=== PATIENT | female | born 1985 | race African-American/Black ===

== ENCOUNTER 2016-06-06 10:48 | Emergency (ER) | payer OTHER ==
[~2016-06-06] VITALS: Ht 160 cm; Wt 130.2 kg
[~2016-06-06 10:48] MED LIST: MEDR10TA PO; PHEN37.5 PO
[2016-06-06 11:48] LABS: BASO % 0 % (0-3); EOS % 1 % (0-3); HEMATOCRIT 36.3 % (36.0-47.0); HEMOGLOBIN 12.1 g/dL (12.0-15.5); LYMPH # 2.7 x10^3/uL (1.0-4.8); LYMPH % 35 % (24-48); MEAN CORPUSCULAR HEMOGLOBIN 29 pg (25-35); MEAN CORPUSCULAR HGB CONC 33 g/dL (31-37); MEAN CORPUSCULAR VOLUME 86 fL (79-100); MONO % 11 % (0-9); NEUT % 53 % (31-73); PLATELET COUNT 306 x10^3/uL (140-400); RED BLOOD COUNT 4.22 x10^6/uL (3.50-5.40); RED CELL DISTRIBUTION WIDTH 15.1 % (11.5-14.5); WHITE BLOOD COUNT 7.8 x10^3/uL (4.0-11.0)
[2016-06-06 11:49] LABS: BILIRUBIN,URINE NEGATIVE (NEG); GLUCOSE,URINE NEGATIVE (NEG); NITRITE,URINE NEGATIVE (NEG); PH,URINE 7.5; PROTEIN,URINE 30 mg/dL (NEG-TRACE); UROBILINOGEN,URINE 0.2 mg/dL (0.2 mg/dL)
[2016-06-06 12:21] LABS: RBC,URINE >40 /HPF (0-2)
[2016-06-06 12:22] LABS: BACTERIA,URINE 0 /HPF (0-FEW); SQUAMOUS EPITHELIAL CELL,UR MANY /LPF; WBC,URINE 0 /HPF (0-4)
--- NOTE | 2016-06-06 13:00 | RAD ---
Indication: Vaginal bleeding. Technique: First trimester OB ultrasound was performed. No comparison is available at this institution. Findings: There is a single live intrauterine with heart tones of 160 bpm. Estimated gestational age by ultrasound is 13 weeks 2 days for an MONET of December 10, 2016. Patient states clinically 9 weeks 3 days, there is a 27 day discrepancy. Biparietal diameter measures 1.99 cm, [address] conference measures 7.57 cm, 13 weeks 1 day. Abdominal circumference measures 6.37 cm, 13 weeks 1 day. Femur length measures 1.19 cm, 13 weeks 4 days. HC/AC ratio is 1.19. No implantation bleed is apparent. Full survey could not be performed in this first trimester . Cervix is long and closed. Maternal left ovary is within normal limits. Right maternal ovary is not visualized. Amniotic fluid is subjectively within normal limits. Impression: Single live intrauterine measures 13 weeks 2 days by ultrasound with heart tones of 160 bpm.
--- NOTE | 2016-06-06 13:12 | PHYS DOC ---
Past Medical History Past Medical History: Hypertension, Other Additional Past Medical Histor: HEART MURMUR Past Surgical History: No Surgical History Smoking: Quit Less Than 1 Year Alcohol Use: None Drug Use: None Adult General Chief Complaint Chief Complaint: VAGINAL BLEEDING HPI HPI Patient is a 31 year old female who presents with vaginal bleeding starting at 10:00 this morning. She is with LMP 04/01/16. She is . She denies any abdominal pain, nausea, vomiting, fever, dysuria, or vaginal discharge. Her PCP is Dr. Sanchez. Her OB is Dr. Goncalves. She is taking daily vitamins. Review of Systems Review of Systems Constitutional: Denies fever or chills. [] Eyes: Denies change in visual acuity, redness, or eye pain. [] HENT: Denies ear pain, nasal congestion or sore throat. [] Respiratory: Denies cough or shortness of breath. [] Cardiovascular: Denies chest pain, palpitations or edema. [] GI: Denies abdominal pain, nausea, vomiting, bloody stools or diarrhea. [] : Denies dysuria, hematuria or urinary frequency. Denies vaginal discharge. Reports vaginal bleeding. Musculoskeletal: Denies back pain or joint pain. [] Integument: Denies rash or skin lesions. [] Neurologic: Denies headache, focal weakness or sensory changes. [] Endocrine: Denies polyuria or polydipsia. [] Psych: Denies anxiety or depression. [] All systems reviewed and negative unless otherwise stated in the HPI. Allergies Allergies Allergies Coded Allergies Type Severity Reaction Last Updated Verified morphine Allergy Unknown 09/07/13 Yes Physical Exam Physical Exam Constitutional: Well developed, well nourished, no acute distress, non-toxic appearance. [] HENT: Normocephalic, atraumatic, oropharynx moist. [] Eyes: PERRLA, EOMI, conjunctiva normal, no discharge. [] Neck: Normal range of motion, no tenderness, supple, no stridor. [] Cardiovascular: Heart rate regular rhythm, no murmur. [] Lungs & Thorax: Bilateral breath sounds clear to auscultation without wheezes, rales, or rhonchi. [] Abdomen: Bowel sounds normal, soft, no tenderness, no masses, no pulsatile masses. 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 Normal external genitalia. There is mild bleeding without clots. The cervical os is closed. There is no cervicitis or CMT. There is no adnexal mass or tenderness. Skin: Warm, dry, no erythema, no rash. [] Back: No midline tenderness, no CVA tenderness. [] Extremities: No tenderness, ROM intact, no edema. Distal pulses equal bilaterally. [] Neurologic: Alert and oriented X 3, normal motor function, normal sensory function, no focal deficits noted. [] Psychologic: Affect normal, judgement normal, mood normal. [] Current Patient Data Vital Signs Vital Signs Date Time Temp Pulse Resp B/P Pulse Ox O2 Delivery O2 Flow Rate FiO2 06/06/16 10:49 98.3 87 20 137/96 98 Room Air 98.3 Lab Values Laboratory Tests Test 06/06/16 11:05 White Blood Count 7.8x10^3/uL (4.0-11.0) Red Blood Count 4.22x10^6/uL (3.50-5.40) Hemoglobin 12.1g/dL (12.0-15.5) Hematocrit 36.3% (36.0-47.0) Mean Corpuscular Volume 86fL (79-100) Mean Corpuscular Hemoglobin 29pg (25-35) Mean Corpuscular Hemoglobin Concent 33g/dL (31-37) Red Cell Distribution Width 15.1% (11.5-14.5) H Platelet Count 306x10^3/uL (140-400) Neutrophils (%) (Auto) 53% (31-73) Lymphocytes (%) (Auto) 35% (24-48) Monocytes (%) (Auto) 11% (0-9) H Eosinophils (%) (Auto) 1% (0-3) Basophils (%) (Auto) 0% (0-3) Neutrophils # (Auto) 4.1x10^3uL (1.8-7.7) Lymphocytes # (Auto) 2.7x10^3/uL (1.0-4.8) Monocytes # (Auto) 0.8x10^3/uL (0.0-1.1) Eosinophils # (Auto) 0.1x10^3/uL (0.0-0.7) Basophils # (Auto) 0.0x10^3/uL (0.0-0.2) Urine Collection Type Unknown Urine Color Yellow Urine Clarity Clear Urine pH 7.5 Urine Specific Star 1.015 Urine Protein 30mg/dL (NEG-TRACE) Urine Glucose (UA) Negativemg/dL (NEG) Urine Ketones (Stick) Negativemg/dL (NEG) Urine Blood Large (NEG) Urine Nitrite Negative (NEG) Urine Bilirubin Negative (NEG) Urine Urobilinogen Dipstick 0.2mg/dL (0.2 mg/dL) Urine Leukocyte Esterase Negative (NEG) Urine RBC >40/HPF (0-2) Urine WBC 0/HPF (0-4) Urine Squamous Epithelial Cells Many/LPF Urine Bacteria 0/HPF (0-FEW) Maternal Serum HCG Beta Subunit 75105nSG/mL (0-6) H Laboratory Tests 06/06/16 11:05 EKG EKG [] Radiology/Procedures Radiology/Procedures REASON: vaginal bleeding starting today, LMP 04/01/16 PROCEDURE: OB < 14 WKS Indication: Vaginal bleeding. Technique: First trimester OB ultrasound was performed. No comparison is available at this institution. Findings: There is a single live intrauterine with heart tones of 160 bpm. Estimated gestational age by ultrasound is 13 weeks 2 days for an MONET of December 10, 2016. Patient states clinically 9 weeks 3 days, there is a 27 day discrepancy. Biparietal diameter measures 1.99 cm, [address] conference measures 7.57 cm, 13 weeks 1 day. Abdominal circumference measures 6.37 cm, 13 weeks 1 day. Femur length measures 1.19 cm, 13 weeks 4 days. HC/AC ratio is 1.19. No implantation bleed is apparent. Full survey could not be performed in this first trimester . Cervix is long and closed. Maternal left ovary is within normal limits. Right maternal ovary is not visualized. Amniotic fluid is subjectively within normal limits. Impression: Single live intrauterine measures 13 weeks 2 days by ultrasound with heart tones of 160 bpm. Course & Med Decision Making Course & Med Decision Making Pertinent Labs and Imaging studies reviewed. (See chart for details) Patient presents with vaginal bleeding starting today. Vital signs are stable in the emergency department. On exam, her abdomen is soft and nonsurgical, and nontender. Pelvic examination reveals mild bleeding with a closed cervical os and no tenderness. Hemoglobin [place] [address]. Her blood type is O+. Ultrasound shows single IUP with good cardiac activity. There is no subchorionic hemorrhage or other identified source of bleeding. The patient is encouraged to continue her vitamins. She is instructed to follow-up with her OB doctor closely. Return precautions were discussed. She verbalizes understanding and agrees with plan. Dragon Disclaimer Dragon Disclaimer This electronic medical record was generated, in whole or in part, using a voice recognition dictation system. Departure Departure Impression: Primary Impression: Threatened Disposition: HOME, SELF-CARE Condition: STABLE Referrals: CONCHITA SANCHEZ MD (PCP) GABI GONCALVES MD Patient Instructions: Threatened Miscarriage, [id number] Additional Instructions: You were seen today for vaginal bleeding in . Your ultrasound shows a normal in the uterus with good heart activity. There were no concerning of her bodies on your blood work today. Please follow-up with your OB doctor. Call as soon as possible to arrange an appointment. Please make sure you are drinking plenty of water to stay hydrated and getting plenty of rest. Please do not have intercourse for one week. Return to the emergency department if you have heavy bleeding that requires you to change a pad every hour, pelvic pain, or other new or concerning symptoms. SOFI TORRES Jun 06, 2016 13:12
[2016-06-06 13:30] VITALS: BP 124/80
== END 2016-06-06 13:35 | disposition home or self-care (01) ==
LOC: ER 10:48
DX: O20.0 Threatened abortion (principal); I10 Essential (primary) hypertension; Z3A.13 13 weeks gestation of pregnancy; Z87.891 Personal history of nicotine dependence; Z88.5 Allergy status to narcotic agent
CPT/HCPCS: 36415; 76801; 81001; 84702; 85027; 86900; 86901; 99285-25

== ENCOUNTER 2018-03-02 22:54 | Emergency (ER) | payer OTHER ==
[~2018-03-02] VITALS: Ht 157.5 cm; Wt 130.2 kg
[2018-03-02 23:00] VITALS: BP 193/105
--- NOTE | 2018-03-02 23:13 | PHYS DOC ---
Past Medical History Past Medical History: Hypertension, Other Additional Past Medical Histor: HEART MURMUR Past Surgical History: Alcohol Use: None Drug Use: None Adult General Chief Complaint Chief Complaint: LOWER EXT PAIN HPI HPI Patient is a 32 year old female with history of hypertension who presents today complaining of 8 out of 10 right knee pain that has been going on for 1 month. Patient describes the pain as sharp and intermittent worse on range of motion especially flexion. Patient denies any known injury. She states she would like to have an x-ray as well as a venous Doppler of the right lower extremity to make sure she does not have a blood clot. She is on Mirena. She has not had any recent long air or car travel. PERC score not appropriate due to hormone use. Review of Systems Review of Systems Constitutional: Denies fever or chills [] Eyes: Denies change in visual acuity, redness, or eye pain [] HENT: Denies nasal congestion or sore throat [] Respiratory: Denies cough or shortness of breath [] Cardiovascular: No additional information not addressed in HPI [] GI: Denies abdominal pain, nausea, vomiting, bloody stools or diarrhea [] : Denies dysuria or hematuria [] Musculoskeletal: Reports right knee pain Integument: Denies rash or skin lesions [] Neurologic: Denies headache, focal weakness or sensory changes [] All other systems were reviewed and found to be within normal limits, except as documented in this note. Allergies Allergies Allergies Coded Allergies Type Severity Reaction Last Updated Verified morphine Allergy Unknown 09/07/13 Yes Physical Exam Physical Exam Constitutional: Well developed, well nourished, no acute distress, non-toxic appearance. [] HENT: Normocephalic, atraumatic, bilateral external ears normal, oropharynx moist, no oral exudates, nose normal. [] Eyes: PERRLA, EOMI, conjunctiva normal, no discharge. [] Neck: Normal range of motion, no tenderness, supple, no stridor. [] Cardiovascular:Heart rate regular rhythm, no murmur [] Lungs & Thorax: Bilateral breath sounds clear to auscultation [] Abdomen: Bowel sounds normal, soft, no tenderness, no masses, no pulsatile masses. [] Skin: Warm, dry, no erythema, no rash. [] Back: No tenderness, no CVA tenderness. [] Extremities: Right knee with no obvious deformity. No edema, no ecchymosis. Full range of motion to the right knee, negative Katlin sign and negative Jessica's sign negative anterior-posterior drawer sign to the right knee. +2 right pedal pulse. Cap refill less than 2 seconds the right toes. Negative Homans sign to the right lower extremity Neurologic: Alert and oriented X 3, normal motor function, normal sensory function, no focal deficits noted. [] Psychologic: Affect normal, judgement normal, mood normal. [] Current Patient Data Vital Signs Vital Signs Date Time Temp Pulse Resp B/P (MAP) Pulse Ox O2 Delivery O2 Flow Rate FiO2 03/02/18 23:00 98.3 71 16 193/105 (134) 97 Room Air 98.3 EKG EKG [] Radiology/Procedures Radiology/Procedures [] Course & Med Decision Making Course & Med Decision Making Pertinent Labs and Imaging studies reviewed. (See chart for details) This is a 32-year-old female patient presenting to the ED today with complaints of right knee pain for 1 month, no known injury. She is morbidly obese. She is requesting an x-ray of the right knee as well as venous Doppler. Blood pressure was 193/105, patient has no headache, no chest pain, has history of hypertension. She states she has not taken her blood pressure medicine unknown period of time. She states she has a prescription at the pharmacy but has not had time to go pick it. Right knee x-rays interpreted by Dr. Christian are negative for any acute findings. Venous Doppler of the right lower extremity is negative. Patient was discharged to home. Instructed to ice and elevate the extremity. Follow-up with orthopedic doctor provided in 1-2 weeks. Provided return precautions and discharged in stable condition. Dragon Disclaimer Dragon Disclaimer This electronic medical record was generated, in whole or in part, using a voice recognition dictation system. Departure Departure Impression: Primary Impression: Right knee pain Disposition: HOME, SELF-CARE Condition: STABLE Referrals: CONCHITA SANCHEZ MD (PCP) EDVIN CELIS MD Follow-up in 1-2 weeks Patient Instructions: Knee Pain, [id number] Additional Instructions: You were evaluated for right knee pain. Highly consider losing weight. Try to exercise. Take [id number] pain relievers as needed. Follow-up with your own doctor or the provided orthopedic doctor in 1-2 weeks as needed. Problem Qualifiers Primary Impression: Right knee pain Chronicity: acute Qualified Codes: M25.561 - Pain in right knee [employer]FFCHACHASIMONE [employer] Mar 02, 2018 23:13
--- NOTE | 2018-03-02 23:53 | RAD ---
Ultrasound venous Doppler INDICATION:rt knee pain x 1 month<. No Known injury TECHNIQUE: Grayscale, color Doppler and spectral waveform ultrasound images of the right lower extremity deep veins obtained. COMPARISON: None FINDINGS: The interrogated deep veins are compressible and demonstrate evidence of blood flow with normal respiratory variation and response to augmentation. IMPRESSION: No sonographic evidence of acute DVT of the right lower extremity deep veins. Electronically signed by: Kevin Bernabe DO (03/02/2018 11:49 PM) [facility]
--- NOTE | 2018-03-03 07:29 | RAD ---
Indication:knee pain; no injury TECHNIQUE: 3 views of the right knee COMPARISON:None FINDINGS: No acute fracture or dislocation. No suprapatellar effusion. No joint space narrowing or productive changes to suggest radiographic signs of osteoarthritis. IMPRESSION: No acute findings. Electronically signed by: Kevin Bernabe DO (03/03/2018 7:25 AM) [facility]
== END 2018-03-02 23:57 | disposition home or self-care (01) ==
LOC: ER 22:54
DX: M25.561 Pain in right knee (principal); M79.604 Pain in right leg; I10 Essential (primary) hypertension; Z88.5 Allergy status to narcotic agent; E66.01 Morbid (severe) obesity due to excess calories; Z68.43 Body mass index [BMI] 50.0-59.9, adult
CPT/HCPCS: 73562; 93971; 99284-25

== ENCOUNTER → 2018-05-16 | Outpatient (CLI) | payer OTHER ==
[~2018-05-16] MED LIST changes: +CYCL10TA2 PO; +GADOBUTROL 10 MMOL/10 ML VIAL IV ONE; +IBUP-1060 PO
--- NOTE | 2018-05-16 13:53 | RAD ---
MRI Brain with and without contrast History:chronic ringing in ears, headaches Technique: Multiplanar, multi sequential pre and postcontrast MR imaging was performed of the brain. Comparison: None Findings: There is no evidence of recent infarct or cytotoxic edema. The ventricles, sulci, and cisterns are within normal limits in size and configuration. There is no significant midline shift, intraaxial mass effect, or focal abnormal extra-axial fluid collection. There is no significant signal abnormality of the brain parenchyma. There is right frontal developmental venous anomaly. There is no nodular parenchymal or leptomeningeal enhancement. There is preservation of the major intracranial flow-voids at the skull base. The cerebellar tonsils are normal in location. There is no significant abnormality of the pineal gland or pituitary gland. There is mild right greater than left maxillary sinus mucosal thickening. There is also mild sphenoid sinus as well as bilateral ethmoid air cell mucosal thickening. Frontal sinus is not significantly pneumatized, trace mucosal thickening of the limited pneumatized right frontal sinus. The mastoid air cells are aerated. There is preserved marrow signal of the clivus. There is no enhancing mass of the internal auditory canals or cerebellopontine angles. Vestibules, cochlea, semicircular canals appear adequately formed bilaterally. There is disconjugate gaze. Impression: 1. There is incidental right frontal developmental venous anomaly, no significant intracranial abnormality. 2. There is mild bilateral paranasal sinus mucosal thickening. Electronically signed by: Donte Bates MD (05/16/2018 1:50 PM) [id number]
--- NOTE | 2018-05-16 14:58 | RAD ---
MRA Brain History:chronic ringing in ears, headaches Technique: 3-D [id number] MR angiography was performed of the brain. Comparison: None Findings: Determination of any degree of stenosis is based on NASCET criteria. There is motion degradation. Both vertebral arteries constitute the basilar artery, somewhat dominant left vertebral artery. There is visualization of segments bilateral AICAs, PICAs, superior cerebellar arteries. There are small posterior communicating arteries bilaterally. There is visualization of the internal carotid arteries bilaterally at the skull base, tortuosity of the distal cervical left internal carotid artery. Appearance of segmental mild to moderate narrowing and irregularity of the proximal petrous right internal carotid ovary may be accentuated by motion otherwise difficult to accurately characterize. No significant anterior communicating artery is visualized. Appearance of irregularity of the proximal right A2 segment and region of the left A1-A2 junction could be accentuated by motion, otherwise difficult to accurately evaluate for stenosis. No convincing intracranial aneurysm is identified. Impression: 1. No significant intracranial aneurysm is identified. Exam is degraded by motion. Appearance of irregularity of the proximal right A2 segment and left A1-2 junction may be due to motion although otherwise difficult to evaluate for stenosis in this region, no other significant stenosis identified. MR venogram head without and with contrast HISTORY: Chronic ringing in ears, headaches TECHNIQUE: Pre and postcontrast MR venography was performed of the head. FINDINGS: There is some motion degradation. No significant venous thrombosis is identified. IMPRESSION: 1. No significant venous thrombosis is identified. Exam is degraded by motion. Electronically signed by: Donte Bates MD (05/16/2018 2:55 PM) [id number]
== END | disposition home or self-care (01) ==
LOC: MRI 09:03
PROVIDERS: ATTEND Otolaryngology
DX: H93.13 Tinnitus, bilateral (principal)
CPT/HCPCS: 70544; 70546; 70553; A9585

== ENCOUNTER 2018-08-09 17:43 | Emergency (ER) | payer OTHER ==
[~2018-08-09] VITALS: Ht 157.5 cm; Wt 130.2 kg
[~2018-08-09 17:43] MED LIST changes: -CYCL10TA2 PO; -GADOBUTROL 10 MMOL/10 ML VIAL IV ONE; -IBUP-1060 PO
[2018-08-09 17:49] VITALS: BP 146/93
[2018-08-09] MEDS ORDERED: KETOROLAC 30 MG/ML VIAL. IM ONE (18:00)
[2018-08-09] MEDS ORDERED: BUTALB/APAP/CAFEIN 50/325/40MG TABLET. PO PRN (18:15)
--- NOTE | 2018-08-09 18:39 | RAD ---
Three-view left shoulder, two-view left humerus and three-view left hand dated 08/09/2018. No comparison available. Clinical data indication: Pain. FINDINGS: 3 views of left shoulder show normal bony alignment. No displaced fracture. No acute osseous or articular abnormality. Mild hypertrophic change of the AC joint. No periostitis or bone destruction. 2 views left humerus show normal bony alignment. Intact humeral shaft. No acute osseous or articular abnormality. 3 views of left hand show normal bony alignment. No displaced fracture. No acute osseous or articular abnormality. IMPRESSION: No acute findings. Electronically signed by: Logan Bell MD (08/09/2018 6:36 PM) [facility]
[2018-08-09] MEDS ORDERED: IBUP-1060 PO (18:44)
[2018-08-09] MEDS ORDERED: CYCL10TA2 PO (18:44)
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
== END 2018-08-09 18:54 | disposition home or self-care (01) ==
LOC: ER 17:43
DX: M25.512 Pain in left shoulder (principal); M79.622 Pain in left upper arm; R51 Headache; Z98.890 Other specified postprocedural states; Z88.5 Allergy status to narcotic agent; V43.52XA Car driver injured in collision with other type car in traffic accident, initial encounter; Y93.89 Activity, other specified; Y92.410 Unspecified street and highway as the place of occurrence of the external cause; Y99.8 Other external cause status
CPT/HCPCS: 73030; 73060; 73130; 96372; 99284; J1885

== ENCOUNTER 2018-10-02 22:50 | Emergency (ER) | payer OTHER ==
[~2018-10-02] VITALS: Ht 157.5 cm; Wt 124.7 kg
[~2018-10-02 22:50] MED LIST changes: +CYCL10TA2 PO; +IBUP-1060 PO
[2018-10-03] MEDS ORDERED: ACETAMINOPHEN 325 MG TABLET. PO ONE
[2018-10-03 00:09] LABS: BASO # 0.1 x10^3/uL (0.0-0.2); BASO % 1 % (0-3); EOS # 0.2 x10^3/uL (0.0-0.7); EOS % 2 % (0-3); HEMATOCRIT 34.7 % (36.0-47.0); HEMOGLOBIN 11.5 g/dL (12.0-15.5); LYMPH # 3.8 x10^3/uL (1.0-4.8); LYMPH % 44 % (24-48); MEAN CORPUSCULAR HEMOGLOBIN 29 pg (25-35); MEAN CORPUSCULAR HGB CONC 33 g/dL (31-37); MEAN CORPUSCULAR VOLUME 89 fL (79-100); MONO # 0.6 x10^3/uL (0.0-1.1); MONO % 7 % (0-9); NEUT % 46 % (31-73); PLATELET COUNT 288 x10^3/uL (140-400); RED CELL DISTRIBUTION WIDTH 14.7 % (11.5-14.5); WHITE BLOOD COUNT 8.7 x10^3/uL (4.0-11.0)
[2018-10-03 00:18] LABS: CALCIUM 9.4 mg/dL (8.5-10.1); CREATININE 0.8 mg/dL (0.6-1.0); POTASSIUM 3.7 mmol/L (3.5-5.1)
--- NOTE | 2018-10-03 00:20 | PHYS DOC ---
Past Medical History Past Medical History: No Pertinent History Additional Past Medical Histor: HEART MURMUR Past Surgical History: Alcohol Use: None Drug Use: None Adult General Chief Complaint Chief Complaint: CHEST PAIN HPI HPI Patient is a 33 year old female presenting with right-sided chest pain pleuritic in nature sharp worse with deep breathing and also with breathing L onset around 8 PM. Symptoms are worse when she breathes out and moves a certain position she really has not had a cough or fever that she knows of no sore throat she was worried because she tried some heartburn medication this did not work she has a 1-year-old she is very worried she does take Mirena Review of Systems Review of Systems Constitutional: Denies fever or chills [] Eyes: Denies change in visual acuity, redness, or eye pain [] Musculoskeletal: Denies back pain or joint pain [] Integument: Denies rash or skin lesions [] Neurologic: Denies headache, focal weakness or sensory changes [] Endocrine: Denies polyuria or polydipsia [] All other systems were reviewed and found to be within normal limits, except as documented in this note. Current Medications Current Medications Current Medications Medications (Trade) Dose Ordered Sig/Lesli Start Time Stop Time Status Last Admin Dose Admin Acetaminophen (Tylenol) 650 mg 1X ONCE 10/03/18 00:00 10/03/18 00:02 DC Ketorolac Tromethamine (Toradol 15mg Vial) 15 mg 1X ONCE 10/03/18 02:45 10/03/18 02:47 DC Allergies Allergies Allergies Coded Allergies Type Severity Reaction Last Updated Verified morphine Allergy Unknown 09/07/13 Yes Physical Exam Physical Exam Constitutional: Well developed, well nourished, no acute distress, non-toxic appearance. [] HENT: Normocephalic, atraumatic, bilateral external ears normal, oropharynx moist, no oral exudates, nose normal. [] Eyes: PERRLA, EOMI, conjunctiva normal, no discharge. [] Neck: Normal range of motion, no tenderness, supple, no stridor. [] Cardiovascular:Heart rate regular rhythm, no murmur [] Lungs & Thorax: Bilateral breath sounds clear to auscultation []reproducible chest wall tenderness on the right Abdomen: Bowel sounds normal, soft, no tenderness, no masses, no pulsatile masses. [] Skin: Warm, dry, no erythema, no rash. [] Back: No tenderness, no CVA tenderness. [] Extremities: No tenderness, no cyanosis, no clubbing, ROM intact, no edema. [] Neurologic: Alert and oriented X 3, normal motor function, normal sensory function, no focal deficits noted. [] Psychologic: Affect normal, judgement normal, mood normal. [] Current Patient Data Vital Signs Vital Signs Date Time Temp Pulse Resp B/P (MAP) Pulse Ox O2 Delivery O2 Flow Rate FiO2 10/02/18 23:30 98.1 57 17 151/86 (107) 98 Room Air 98.1 Lab Values Laboratory Tests Test 10/02/18 23:23 10/03/18 00:35 10/03/18 01:50 White Blood Count 8.7 x10^3/uL (4.0-11.0) Red Blood Count 3.90 x10^6/uL (3.50-5.40) Hemoglobin 11.5 g/dL (12.0-15.5) L Hematocrit 34.7 % (36.0-47.0) L Mean Corpuscular Volume 89 fL (79-100) Mean Corpuscular Hemoglobin 29 pg (25-35) Mean Corpuscular Hemoglobin Concent 33 g/dL (31-37) Red Cell Distribution Width 14.7 % (11.5-14.5) H Platelet Count 288 x10^3/uL (140-400) Neutrophils (%) (Auto) 46 % (31-73) Lymphocytes (%) (Auto) 44 % (24-48) Monocytes (%) (Auto) 7 % (0-9) Eosinophils (%) (Auto) 2 % (0-3) Basophils (%) (Auto) 1 % (0-3) Neutrophils # (Auto) 4.0 x10^3/uL (1.8-7.7) Lymphocytes # (Auto) 3.8 x10^3/uL (1.0-4.8) Monocytes # (Auto) 0.6 x10^3/uL (0.0-1.1) Eosinophils # (Auto) 0.2 x10^3/uL (0.0-0.7) Basophils # (Auto) 0.1 x10^3/uL (0.0-0.2) Sodium Level 143 mmol/L (136-145) Potassium Level 3.7 mmol/L (3.5-5.1) Chloride Level 104 mmol/L (98-107) Carbon Dioxide Level 25 mmol/L (21-32) Anion Gap 14 (6-14) Blood Urea Nitrogen 10 mg/dL (7-20) Creatinine 0.8 mg/dL (0.6-1.0) Estimated GFR (Cockcroft-Gault) 100.0 BUN/Creatinine Ratio 13 (6-20) Glucose Level 81 mg/dL (70-99) Calcium Level 9.4 mg/dL (8.5-10.1) Total Bilirubin 0.1 mg/dL (0.2-1.0) L Aspartate Amino Transferase (AST) 16 U/L (15-37) Alanine Aminotransferase (ALT) 17 U/L (14-59) Alkaline Phosphatase 66 U/L (46-116) Troponin I Quantitative < 0.017 ng/mL (0.000-0.055) < 0.017 ng/mL (0.000-0.055) Total Protein 7.7 g/dL (6.4-8.2) Albumin 3.8 g/dL (3.4-5.0) Albumin/Globulin Ratio 1.0 (1.0-1.7) Prothrombin Time 12.4 SEC (11.7-14.0) Prothrombin Time INR 1.0 (0.8-1.1) D-Dimer (Jessica) < 0.27 ug/mlFEU Laboratory Tests 10/02/18 23:23 Laboratory Tests 10/02/18 23:23 EKG EKG []EKG shows a sinus rhythm rate of 56 there is some nonspecific ST changes noted laterally and inferiorly no old EKG is noted for comparison no STEMI Radiology/Procedures Radiology/Procedures []Chest x-ray interpreted by me was negative acute no pneumothorax was identified no cardiomegaly Course & Med Decision Making Course & Med Decision Making Pertinent Labs and Imaging studies reviewed. (See chart for details) []Atypical chest pain and is reproducible it is worse when she lies back to do the heart exam HEART SCORE IS A H 0 E 0 A 0 R 1 T 0 DDIMER DONE TO R/O PE. TROP NEG X TWO PT FEELS BETTER HAS SOME REPRODUCIBIILTY WITH ARM MOVEMENT ON REEVAL IN THE ER SAFE FOR D/C HOME. DDIMER NEG Romelia Disclaimer Dragon Disclaimer This electronic medical record was generated, in whole or in part, using a voice recognition dictation system. Departure Departure Impression: Primary Impression: Chest pain Disposition: HOME, SELF-CARE Condition: STABLE Referrals: CONCHITA SANCHEZ MD (PCP) JERRICA HICKS MD Oct 03, 2018 00:20
[2018-10-03 00:23] LABS: ALBUMIN 3.8 g/dL (3.4-5.0); TOTAL BILIRUBIN 0.1 mg/dL (0.2-1.0); TOTAL PROTEIN 7.7 g/dL (6.4-8.2)
[2018-10-03 01:00] LABS: PROTHROMBIN TIME PATIENT 12.4 SEC (11.7-14.0)
--- NOTE | 2018-10-03 01:02 | RAD ---
AP portable chest radiograph 10/02/2018 Clinical History: Chest pain. An AP erect portable digital radiograph of the chest was obtained. No previous studies are available for comparison. The cardiac and mediastinal silhouettes are within normal limits in size and configuration. No acute pulmonary infiltrate is seen. No pleural effusion or pneumothorax is noted. The osseous structures are grossly intact. IMPRESSION: No acute abnormality is seen. Electronically signed by: Refuigo Danielle MD (10/03/2018 12:59 AM) [facility]
[2018-10-03 01:04] LABS: D-DIMER < 0.27 ug/mlFEU (0.00-0.50)
[2018-10-03 02:40] VITALS: BP 149/84
[2018-10-03] MEDS ORDERED: KETOROLAC 15 MG/ML VIAL. IV ONE (02:45)
--- NOTE | 2018-10-04 06:32 | EKG ---
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
== END 2018-10-03 03:00 | disposition home or self-care (01) ==
LOC: ER 22:50
DX: R07.81 Pleurodynia (principal); R07.1 Chest pain on breathing; R12 Heartburn; Z88.5 Allergy status to narcotic agent
CPT/HCPCS: 36415; 71045; 80053; 84484; 85025; 85379; 85610; 93005; 96374; 99285; J1885

== ENCOUNTER 2021-02-15 13:17 | Emergency (ER) | payer OTHER ==
[~2021-02-15] VITALS: Ht 160 cm; Wt 131.3 kg
[~2021-02-15 13:17] MED LIST changes: +CYCL10TA19 PO; -CYCL10TA2 PO; -PHEN37.5 PO; +PHEN37.59 PO
--- NOTE | 2021-02-15 14:19 | PHYS DOC ---
Past Medical History Past Medical History: No Pertinent History Additional Past Medical Histor: HEART MURMUR (MARCELL BRODY) Past Surgical History: No Surgical History (MARCELL BRODY) Smoking Status: Current Every Day Smoker Alcohol Use: None Drug Use: None (MARCELL BRODY) General Adult EDM: Chief Complaint: WRIST PAIN HPI: HPI: Patient is a 35 year old female who presents with left wrist pain. Patient rates her pain 6/10 at rest and exacerbated by any movement. She states her pain is worse since onset and reports associated crepitus. 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 She reports that last night, she had to transport a heavy patient as well as a just another in their bed. She is unsure of which movement caused her pain, but she reports when she left work yesterday it hurt. She soaked her wrist in Epsom mark t bath without significant pain improvement. Patient denies prior injury, paresthesias. She has no other complaints at this time. (MARCELL BRODY) Review of Systems: Review of Systems: ROS negative except as mentioned in HPI. (MARCELL BRODY) Heart Score: C/O Chest Pain: No (MARCELL BRODY) Current Medications: Current Medications Medications (Trade) Dose Ordered Sig/Lesli Start Time Stop Time Status Last Admin Dose Admin Ketorolac Tromethamine (Toradol Im) 60 mg 1X ONCE 02/15/21 14:15 02/15/21 14:16 UNV (MARCELL BRODY) Allergies: Allergies: Allergies Coded Allergies Type Severity Reaction Last Updated Verified morphine Allergy Intermediate 02/15/21 Yes (MARCELL BRODY) Physical Exam: PE: Constitutional: Obese, well groomed, no acute distress, non-toxic appearance. Cardiovascular: Heart rate regular rhythm. Lungs & Thorax: Bilateral breath sounds clear to auscultation. Skin: Warm, dry, no erythema, no rash, no abrasion, no laceration. Extremities: Left wrist with dorsal medial swelling and tenderness, no crepitus appreciated, passive and active range of motion intact, neurovascular intact. Extremities otherwise no tenderness, no cyanosis, no clubbing, ROM intact, no edema. (MARCELL BRODY) Current Patient Data: Vital Signs: Vital Signs Date Time Temp Pulse Resp B/P (MAP) Pulse Ox O2 Delivery O2 Flow Rate FiO2 02/15/21 13:49 97.8 72 14 153/76 (101) 99 Room Air 97.8 (MARCELL BRODY) Radiology/Procedures: Radiology/Procedures: PROCEDURE: WRIST 3V LEFT EXAM: Left wrist, 3 views. HISTORY: Pain. COMPARISON: None. FINDINGS: 3 views of the left wrist are obtained. There is no acute fracture, dislocation or subluxation. There is no foreign body. IMPRESSION: No acute osseous finding. Electronically signed by: Aneta Medina MD (02/15/2021 2:49 PM) [id number] (MARCELL BRODY) Course & Med Decision Making: Course & Med Decision Making Pertinent Labs and Imaging studies reviewed. (See chart for details) X-rays obtained to evaluate for fracture and dislocation. Patient made aware that x-ray imaging is limited if soft tissue injury is present. Plain films do not reveal any acute fracture or dislocation. Patient placed in a Velcro wrist splint for compression and comfort. Patient advised to continue taking [id number] NSAIDs for inflammation and pain control. Should her symptoms not improve in the next few days, she is provided with orthopedic follow-up for further evaluation and management. Patient understands and is agreeable to discharge plan. (MARCELL BRODY) Dragon Disclaimer: Dragon Disclaimer: This electronic medical record was generated, in whole or in part, using a voice recognition dictation system. (MARCELL BRODY) Departure Departure Impression: Primary Impression: Unspecified sprain of left wrist, initial encounter Disposition: HOME / SELF CARE / HOMELESS Condition: STABLE Referrals: CONCHITA SANCHEZ MD (PCP) SIMON ROSENBERG DO Patient Instructions: RICE - Routine Care for Injuries, [id number], Wrist Splint, [id number] Attending Signature Attending Signature I have reviewed the PA/DATA ENTRY's note and plan of care. I was available for consultation as needed during the patient's visit in the emergency department. I agree with the clinical impression, plan, and disposition. (ATTILA CHAMORRO DO) MARCELL BRODY Feb 15, 2021 14:19 ATTILA CHAMORRO DO Feb 15, 2021 16:51
[2021-02-15] MEDS ORDERED: KETOROLAC 60 MG/2 ML VIAL. IM ONE (14:30)
--- NOTE | 2021-02-15 14:51 | RAD ---
EXAM: Left wrist, 3 views. HISTORY: Pain. COMPARISON: None. FINDINGS: 3 views of the left wrist are obtained. There is no acute fracture, dislocation or subluxat ion. There is no foreign body. IMPRESSION: No acute osseous finding. Electronically signed by: Aneta Medina MD (02/15/2021 2:49 PM) [id number]
[2021-02-15 15:09] VITALS: BP 136/85
== END 2021-02-15 15:09 | disposition home or self-care (01) ==
LOC: ER 13:17
DX: S63.502A Unspecified sprain of left wrist, initial encounter (principal); Z88.5 Allergy status to narcotic agent; X58.XXXA Exposure to other specified factors, initial encounter; Y93.89 Activity, other specified; Y92.89 Other specified places as the place of occurrence of the external cause; Y99.8 Other external cause status
CPT/HCPCS: 29125; 73120; 96372; 99283; J1885